=== PATIENT | male | born 1945 | race Caucasian/White ===

== ENCOUNTER → 2024-02-14 06:15 | Day surgery (SDC) | payer OTHER, SELFPAY | LOC: GI 06:15 | PROVIDERS: ATTENDING PHYSICIAN Specialist | DX: Z12.11 Encounter for screening for malignant neoplasm of colon (principal); K57.30 Diverticulosis of large intestine without perforation or abscess without bleeding; K56.2 Volvulus; Z83.719 Family history of colon polyps, unspecified | CPT/HCPCS: G0105 ==

== ENCOUNTER → 2024-06-01 10:28 | Outpatient (REF) | payer OTHER, SELFPAY | LOC: PAVMRI 10:28 | PROVIDERS: ATTENDING PHYSICIAN Orthopaedic Surgery; FAMILY PHYSICIAN Family Medicine | DX: M25.512 Pain in left shoulder (principal) | CPT/HCPCS: 73221 ==

== ENCOUNTER 2024-06-09 06:58 | Emergency (ER) | payer OTHER, SELFPAY ==
[2024-06-09 07:01] VITALS: BP 173/106
[2024-06-09 07:35] VITALS: BMI 36.1
--- NOTE | 2024-06-09 07:38 | ED.GENMED ---
History of Present Illness
<Wolf Casarez MD, Resident - Last Filed: 06/09/24 09:16>
General
Chief Complaint: Nose Bleed
Source: patient, spouse and family
Time Seen by Provider: 06/09/24 07:38
Nursing documentation reviewed up to this point in time: agreed with
Travel History
Have you traveled to any high risk areas for coronavirus over the past 14 days?: No
Have you had any contact with someone who has COVID-19?: No
Do you have any symptoms of coronavirus? Fever > 100 degrees, chills, cough, shortness of breath, sore throat, loss of taste or smell, muscle aches, or headache?: No
History of Present Illness
History of Present Illness:
79-year-old male with PMH of CAD, hypothyroidism, hypertension, hyperlipidemia who presented to the emergency department today with left nosebleed. Patient woke up this morning around 4 AM and he blew his nose and started having severe bleeding for
the 2 hours. Patient states that he has taken aspirin for 20 years, however, does not take any blood thinners. Patient denies trauma, sleeping in very hot room, and has humidifier at home. He does not have any history of hemorrhage, blood clots,
blood dyscrasias. He denies easy bruising, no speaking, bloody urine, black stool, and bloody stools.
Past History
<Wolf Casarez MD, Resident - Last Filed: 06/09/24 09:16>
Past History
ED Past Medical History: CAD, HTN, Hypercholesterolemia, [place] and Hypothyroidism
ED Past Surgical History: Cardiac and Other (Umbilical hernia repair)
Social History
Tobacco: Former smoker
Alcohol: Daily
Drug: None
Personal:
Living: with family
Employment: Retired
Family History
Family History: Other (His father had [place] and prostate cancer)
Review of Systems
<Wolf Casarez MD, Resident - Last Filed: 06/09/24 09:16>
Review of Systems
Allergies reviewed?: Yes
Other source history: family
All Other Systems: ROS reviewed and negative except as documented in HPI and ROS
Phy Exam
<Wolf Casarez MD, Resident - Last Filed: 06/09/24 09:16>
General Physical Exam
General Presentation: well appearing and no apparent distress
General age: appears stated age
General Skin: warm and dry
General Habitus: obese
General Mental: alert
General Hydration: appears well hydrated
ENT Exam
ENT Exam: EOMI, neck supple, normocephalic, swallowing well and other (Left nare epistaxis)
Skin Exam
Skin Exam: normal color, warm/dry, no rash and no petechia
Course
<Wolf Casarez MD, Resident - Last Filed: 06/09/24 09:16>
Vital Signs
Initial and Last Documented VS:
Initial Vital Signs
Temp Pulse Resp BP Pulse Ox
98.4 F 94 18 173/106 96
06/09/24 07:01 06/09/24 07:01 06/09/24 07:01 06/09/24 07:01 06/09/24 07:01
Last Documented Vital Signs
Temp Pulse Resp BP Pulse Ox
98.4 F 78 15 107/71 97
06/09/24 07:01 06/09/24 08:50 06/09/24 08:50 06/09/24 08:50 06/09/24 08:00
<Grady Pruitt, DO - Last Filed: 06/09/24 08:25>
Vital Signs
Initial and Last Documented VS:
Initial Vital Signs
Temp Pulse Resp BP Pulse Ox
98.4 F 94 18 173/106 96
06/09/24 07:01 06/09/24 07:01 06/09/24 07:01 06/09/24 07:01 06/09/24 07:01
Last Documented Vital Signs
Temp Pulse Resp BP Pulse Ox
98.4 F 78 15 107/71 97
06/09/24 07:01 06/09/24 08:50 06/09/24 08:50 06/09/24 08:50 06/09/24 08:00
Procedures
<Wolf Casarez MD, Resident - Last Filed: 06/09/24 09:16>
Nosebleed
Drug treatment: Lidocaine and Epinephrine
Treatment: local pressure applied
Post treatment bleeding: none- good control
<Wolf Casarez MD, Resident - Last Filed: 06/09/24 09:16>
MDM/Problems Addressed
Differential Diagnosis Includes:
Anterior nasal epistaxis due to dry nostrils, poor hemostasis.
MDM/Problems Addressed:
79-year-old male who presented to the ED with left nasal epistaxis that started at 4 AM this morning. Pressure has been held on his nose for close to 3 hours without much improvement in bleeding. Apart from aspirin, patient does not take any blood
thinners and did not have any trauma to the nose including nose picking.
Patient has been treated with local application of epinephrine on cottonball inserted to the affected nostril.
<Wolf Casarez MD, Resident - Last Filed: 06/09/24 09:16>
*Critical Care Note
Total Time (30-74mins, 75-104mins- exclusive of procedures): Not Applicable
Data Reviewed
Review of Other/Old Records Reveals: Records (PT 13.4)
<Wolf Casarez MD, Resident - Last Filed: 06/09/24 09:16>
Update Note
Update Note:
After 10 minutes of cauterization with lidocaine cottonball, epistaxis resolved. Patient was given samples of Polysporin bacitracin zinc polymyxin B sulfate antibiotic ointment, and nasal clip and was instructed to moisturize ministries with the
antibiotic and to use a nose clip in case of repeated bleed. Patient knows to come back to the ED if bleeding for more than 20 minutes.
ED Attending Note
<Wolf Casarez MD, Resident - Last Filed: 06/09/24 09:16>
-
Portions of this chart may have been created with voice recognition software.� Occasional wrong word or��sound alike� substitutions may have occurred due to the inherent limitations of voice recognition software.
<Grady Pruitt DO - Last Filed: 06/09/24 08:25>
ED Attending Note
Patient seen and examined by attending physician: Yes
I performed a history and physical exam of patient and discussed management with resident, I reviewed resident's note and agree with documented findings and plan of care.: Yes
ED Attending Note:
Seen with resident examined independently 80-year-old male spontaneous left-sided nosebleed aspirin no other blood thinners looks fairly well-controlled with pressure and epinephrine pledgets
Discharge Plan
Departure
Patient Disposition: Home (Routine Discharge)
Date of Disposition: 06/09/24
Time of Disposition: 08:33
Patient with high blood pressure during this ER visit?: Yes
Condition: Good
Covid-19: Not Applicable
Discharge Problem:
Left-sided nosebleed, Acute anterior epistaxis, Hypertension
Instructions: Nosebleeds (DC), BLOOD PRESSURE
Prescriptions:
No Action
osgdr-7c-kxy-epa-fish oil 1 EACH capsule
2,800 cap PO DAILY
atorvastatin 20 MG tablet
20 mg PO HS
aspirin 81 MG tablet,delayed release (DR/EC)
81 mg PO HS
levothyroxine 125 MCG tablet
125 mcg PO DAILY
losartan 25 MG tablet
25 mg PO HS
nitroglycerin 0.4 MG tablet, sublingual
0.4 mg sublingual [id number] PRN (Reason: CHEST PAIN)
allopurinol 300 MG tablet
300 mg PO DAILY
cholecalciferol (vitamin D3) 1,000 UNITS tablet
1,000 units PO DAILY
clopidogrel 75 MG tablet
75 mg PO DAILY
metoprolol succinate 12.5 MG tablet extended release 24 hr
12.5 mg PO HS
acetaminophen 325 MG tablet
650 mg PO Q4HPRN PRN (Reason: temp > 101 F) 0RF
isosorbide mononitrate 30 MG tablet extended release 24 hr
30 mg PO DAILY Qty: 30 2RF
Referrals:
Cherry Hogan DO [Family Provider] -
Interventions
Interventions:
*Risk Screen - Suicide Last Done: 06/09/24 07:01
*General Assessment Last Done: 06/09/24 07:01
*Neglect/Abuse Screening Last Done: 06/09/24 07:01
*ED COVID-19 Vaccine History Last Done: 06/09/24 07:43
*Nursing Disposition Last Done: 06/09/24 08:50
ED-EENT Assessment Last Done: 06/09/24 07:43
Discharge Date and Time
Discharge Date/Time: 06/09/24 08:58
Print Language: ECUADOREAN
[2024-06-09 07:40] VITALS: BP 101/65
[2024-06-09 08:00] VITALS: BP 116/74
[2024-06-09 08:50] VITALS: BP 107/71
== END 2024-06-09 08:58 | disposition home or self-care (01) ==
LOC: EMR 06:58
PROVIDERS: EMERGENCY PHYSICIAN Emergency Medicine; FAMILY PHYSICIAN Family Medicine
DX: R04.0 Epistaxis (principal); R42 Dizziness and giddiness; I10 Essential (primary) hypertension; E78.00 Pure hypercholesterolemia, unspecified; I25.10 Atherosclerotic heart disease of native coronary artery without angina pectoris; E03.9 Hypothyroidism, unspecified; I25.2 Old myocardial infarction; Z79.82 Long term (current) use of aspirin; Z87.891 Personal history of nicotine dependence
CPT/HCPCS: 99283; 30901

== ENCOUNTER 2024-06-12 10:39 | Day surgery (SDC) | payer OTHER, SELFPAY ==
[2024-06-12] VITALS (26 sets, daily range): BP systolic 127–195; BP diastolic 71–98; BMI 37.3
--- NOTE | 2024-06-12 06:50 | ED.GENMED ---
History of Present Illness
General
Chief Complaint: Chest Pain
Source: patient
Exam Limitations: none
Time Seen by Provider: 06/12/24 06:40
History of Present Illness
History of Present Illness:
See MDM
Past History
Past History
ED Past Medical History: CAD, HTN, Hypercholesterolemia, [place] and Hypothyroidism
ED Past Surgical History: Cardiac and Other (Umbilical hernia repair)
Social History
Tobacco: Former smoker
Alcohol: Daily
Drug: None
Personal:
Living: with family
Employment: Retired
Family History
Family History: Other (His father had [place] and prostate cancer)
Phy Exam
Physical Exam
Physical Exam:
See MDM
Scores
Heart Score for Chest Pain Patients
STEMI patient?: No
History: Moderately Suspicious
ECG: Nonspecific Repolarization
Age: >/= 65 years
Risk Factors: >/= 3 Risk Factors or History of CAD
Troponin: >/= 3 x Normal Limit
Heart Score for Chest Pain Patients: 8
Heart Score Risk: 72.7 % MACE over next 6 weeks
Course
Orders/Labs/Results
Orders:
Orders
06/12/24 06:42
Electrocardiogram (*1) Urgent
Reason for Study: Chest Pain
06/12/24 06:43
EKG- Treatment ONCE
06/12/24 06:44
Complete Blood Count/With Diff Urgent
Comprehensive Metabolic Panel Urgent
Troponin I Urgent
06/12/24 07:31
Nitroglycerin Ointment [Nitro-Bid] 1 inch TOPICAL NOW STA
06/12/24 07:46
PTT Urgent
Comment: Obtain baseline before beginning heparin infusion if not already collected
Heparin 4,000 units IV NOW STA
Pharmacy Request to Place See Dose Instructions PO NOW STA
Discontinue all Active Warfarin orders?: Yes
Nursing to Place Non Medication Order As Directed
Physician Order: PTT 6 hours after initial start of Heparin infusion
06/12/24 07:47
Electrocardiogram (*1) Urgent
Reason for Study: Chest Pain
EKG- Treatment ONCE
Nitroglycerin INFUSION NOW X 1 BOTTLE Nitroglycerin 100 mg/250 ml [Nitroglycerin Premix] 100 mg in 250 ml IV NOW
Initial dose in mcg/min, then titrate:: 5
Titrate to keep:: SBP < 160 mmHg
Titrate by mcg/min:: 5 mcg/min, may increase by 10 mcg/min if dose > 20 mcg/min
Frequency of titrations (minutes):: every 3-5 minutes
Maximum dose in mcg/min:: 200
Begin to taper infusion when:: Remained at goal for 2hrs
Taper by mcg/min:: 5 mcg/min
Frequency of taper (minutes) if patient maintains goal:: 30
Taper to off?: Yes
If infusion off & no longer maintaining goal:: Contact Provider
06/12/24 08:00
Heparin 70520 Units/250 ml 25,000 units in 250 ml IV PER PROTOCOL
Weight to be used for heparin protocol in kilograms (kg):: 108
Protocol:: Cardiac Tx/Acute Coronary
PTT Goal Range to be used:: PTT 73 to 111 seconds
Order type:: Initial
INITIAL Infusion Dose (UNITS/KG/hr) & then follow protocol:: 12 units/kg/hr
Infusion Dose in UNITS/hr & then follow protocol (UNITS/hr):: 1,000
INFUSION RATE in mL/hr & then follow protocol (mL/hr):: 10
PTT less than or equal to 64 seconds:: Increase rate by 200 units/hr (+ 2 mL/hr)
PTT 64.1 to 72.9 seconds:: Increase rate by 100 units/hr (+ 1 mL/hr)
PTT 73 to 111 seconds:: Target Range. No change in rate.
PTT 111.1 to 130.9 seconds:: Decrease rate by 100 units/hr (- 1 mL/hr)
PTT 131 to 199.9 seconds:: HOLD for 1 hr. Then decrease rate by 200 units/hr (- 2 mL/hr)
PTT greater than or equal to 200 seconds:: HOLD for 2 hrs & Notify Provider. Then decrease by 200 units/hr (-
2 mL/hr)
Lab follow-up:: Each change, PTT q6h until 2 consecutive are therapeutic. Then PTT
daily.
Pharmacy Request to Place See Dose Instructions IV DIRECTED
06/12/24 09:30
Troponin I Urgent
Abnormal Lab Results
06/12/24
06:44
RBC 4.28 L 10^6/uL
(4.70-6.10)
Hct 38.5 L %
(39.0-52.0)
Abs Immat Gran (auto) 0.2 H 10^3/uL
(0-0.05)
Absolute Neuts (auto) 6.7 H 10^3/uL
(1.4-6.5)
Absolute Monos (auto) 0.8 H 10^3/uL
(0.1-0.6)
Immature Gran % 1.6 H %
(0-0.5)
BUN 27 H mg/dl
(9-20)
Glucose 111 H mg/dl
(70-99)
Troponin I 0.113 H* ng/ml
06/12/24 06:44
06/12/24 06:44
Vital Signs
Initial and Last Documented VS:
Initial Vital Signs
BP
169/83
06/12/24 06:39
Last Documented Vital Signs
Temp Pulse Resp BP Pulse Ox
97.9 F 66 17 157/87 98
06/12/24 06:41 06/12/24 07:35 06/12/24 07:00 06/12/24 07:35 06/12/24 06:45
MDM/Problems Addressed
Differential Diagnosis Includes:
HPI and MDM Narrative:
79-year-old male presenting for evaluation of chest pain. Patient took a full aspirin and a nitroglycerin which helped alleviate some symptoms. He woke up due to the pain. EMS provided 2 more nitroglycerin on arrival, patient states he is feeling
much better. He does have a history of coronary artery disease with multiple stents. Patient denies any active chest pain but states 'I am aware of it'. Given his history, will obtain 2 troponin rule out. Will ultimately discuss case with
cardiology given his comorbidities and current symptoms
Physical exam
General: Well appearing and non-toxic
HEENT: protecting airway
Neck: appears supple
CV: No evidence of cyanosis. Regular rate and rhythm
Resp: No accessory muscle use
Abd: Non-distended
Extremities: No deformities. No leg edema
Neuro: alert
Psych: Normal affect
Skin: Intact
Problems Addressed including Acute and Chronic Conditions affecting care:
1. Chest pain
Acuity: acute
Prognosis: stable
Details: Patient currently chest pain-free. Nitroglycerin did alleviate symptoms. Will continue to monitor. Given his past medical history, will obtain 2 troponins
Updates
7:30 AM troponin found to be elevated. On reassessment, patient states the pain has returned. Because of the concern for unstable angina and ACS, will place Nitropaste. Cardiology made aware
7:40 AM Case discussed with cardiology. Will transition Nitropaste to IV nitroglycerin. Patient started on IV heparin
Differential Diagnosis (but not limited to): Unstable angina, acute coronary syndrome, noncardiac chest pain
Testing considered: Chest x-ray but he denies any active chest pain or shortness of breath
Drug therapy (if applicable): OTC meds, please see d/c instruction regarding Rx drugs
Amount and/or Complexity of Data Reviewed
Clinical info obtained from: Patient
External data reviewed: Prior history of coronary disease with multiple stents
Labs I independently reviewed (but not limited to): Elevated troponin
Radiology: N/A
Pulse Ox: not hypoxic
EKG independently reviewed: Sinus rhythm, normal axis, no STEMI, PVCs noted
Human Services Professional: Sinus rhythm
Critical Care: The high probability of a clinically significant, sudden or life threatening deterioration of the cardiovascular system(s) required my full and direct attention, intervention and personal management. The aggregate critical care time
was 33 minutes. This time is in addition to time spent performing reported procedures but includes the following:
[x] Data Review and interpretation
[x] Patient assessment and monitoring of vital signs
[x] Documentation
[x] Medication orders and management
Risk of Complication:
Social Determinants of health: Good social support
Discussed with other providers: Hospitalist, trading floor operator
Escalation of Care includes Admit/Obs: Given the concern for unstable angina, will admit
Occasional wrong word or 'sound a like' substitutions may have occurred due to the inherent limitations of voice recognition software. Read the chart carefully and recognize, using context, where substitutions have occurred.
*Critical Care Note
Total Time (30-74mins, 75-104mins- exclusive of procedures): 33 min
ED Attending Note
-
Portions of this chart may have been created with voice recognition software.� Occasional wrong word or��sound alike� substitutions may have occurred due to the inherent limitations of voice recognition software.
Discharge Plan
Departure
Patient Disposition: Admit
Date of Disposition: 06/12/24
Time of Disposition: 07:35
Admit to: Telemetry
Presentation/result/management discussed w/ accepting MD/DO: Hospitalist
Discharge Problem:
Unstable angina
Prescriptions:
No Action
zdylp-0x-ekd-epa-fish oil 1 EACH capsule
2,800 cap PO DAILY
atorvastatin 20 MG tablet
20 mg PO HS
aspirin 81 MG tablet,delayed release (DR/EC)
81 mg PO HS
levothyroxine 125 MCG tablet
125 mcg PO DAILY
losartan 25 MG tablet
25 mg PO HS
nitroglycerin 0.4 MG tablet, sublingual
0.4 mg sublingual [id number] PRN (Reason: CHEST PAIN)
allopurinol 300 MG tablet
300 mg PO DAILY
cholecalciferol (vitamin D3) 1,000 UNITS tablet
1,000 units PO DAILY
clopidogrel 75 MG tablet
75 mg PO DAILY
metoprolol succinate 12.5 MG tablet extended release 24 hr
12.5 mg PO HS
acetaminophen 325 MG tablet
650 mg PO Q4HPRN PRN (Reason: temp > 101 F) 0RF
isosorbide mononitrate 30 MG tablet extended release 24 hr
30 mg PO DAILY Qty: 30 2RF
Referrals:
Cherry Hogan DO [Family Provider] -
Interventions
Interventions:
*Risk Screen - Suicide Last Done: 06/12/24 06:41
*General Assessment Last Done: 06/12/24 06:41
*Neglect/Abuse Screening Last Done: 06/12/24 06:41
ED- Fall Risk Assessment Last Done: 06/12/24 06:55
*ED COVID-19 Vaccine History Last Done: 06/12/24 07:14
ED- Cardiac Assessment Last Done: 06/12/24 07:10
Discharge Date and Time
Print Language: IRISH
[2024-06-12 06:51] LABS: % Basophils 0.5 % (0-2); % Eosinophils 0.5 % (0-6); % Immature Granulocytes 1.6 % (0-0.5); % Lymphocytes 21.4 % (20.5-51.1); % Monocytes 8.1 % (1.7-9.3); % Neutrophils 67.9 % (42.2-75.2); Absolute Basophils 0.1 10^3/uL (0-0.2); Absolute Eosinophils 0.1 10^3/uL (0-0.7); Absolute Immature Granulocytes 0.2 10^3/uL (0-0.05); Absolute Lymphocytes 2.1 10^3/uL (1.2-3.4); Absolute Monocytes 0.8 10^3/uL (0.1-0.6); Absolute Neutrophils 6.7 10^3/uL (1.4-6.5); Hematocrit 38.5 % (39.0-52.0); Mean Corp Hgb Conc. 33.8 g/dL (33.0-37.0); Mean Corpuscular Hgb 30.4 pg (27.0-31.0); Mean Platelet Volume 9.6 fL (7.4-10.4); Nucleated Red Blood Cells % 0 % (-); Platelet Count 183 10^3/uL (130-400); Red Blood Cell Count 4.28 10^6/uL (4.70-6.10); Red Cell Dist. Width 13.4 % (11.5-14.5); White Blood Cell Count 9.9 10^3/uL (4.8-10.8)
[2024-06-12 07:07] LABS: ALT (SGPT) 40 U/L (0-50); AST (SGOT) 38 U/L (17-59); Albumin 4.3 g/dl (3.5-5.0); Alkaline Phosphatase 59 U/L (38-126); Blood Urea Nitrogen 27 mg/dl (9-20); Calcium 9.2 mg/dl (8.4-10.2); Carbon Dioxide 27 mmol/L (22-30); Chloride 107 mmol/L (98-107); Estimated Creatinine Clearance 102 ml/min; Glucose 111 mg/dl (70-99); Sodium 144 mmol/L (135-145); Total Bilirubin 0.4 mg/dl (0.2-1.3); Total Protein 6.4 g/dl (6.3-8.2); eGFR > 60.00
[2024-06-12 07:12] LABS: Potassium 3.9 mmol/L (3.5-5.1)
[2024-06-12 07:22] LABS: Troponin I 0.113 ng/ml
[2024-06-12] MEDS: NITRO-BID 1 INCH TOPICAL (07:35)
[2024-06-12] MEDS: NITROGLYCERIN PREMIX 250 IV (08:05)
[2024-06-12] MEDS: HEPARIN 4000 UNITS IV (08:05)
[2024-06-12] MEDS: HEPARIN 25000 UNITS/250 ML IV (08:11)
[2024-06-12 08:17] LABS: APTT 29.3 Sec (23.4-35.0)
--- NOTE | 2024-06-12 08:26 | HPS.HSE ---
Addendum entered and electronically signed by Buddy Allan MD 06/12/24 11:45:
I saw and examined the patient.
The ACCOUNTANT SYSTEMS's note was reviewed and I agree with the note.
Primary pan helper Dr. Cruz
.
79-year-old male with known coronary artery disease, previous history of coronary stenting, chronically occluded LAD with collaterals with last catheterization 2020, hypertension and hypercholesterolemia who developed chest discomfort at 5 AM
initially resolved en route after nitroglycerin given by EMS patient's had recurrent chest discomfort in the ER which was back to 5 out of 10 in intensity but then has been slowly improving. Patient with mild residual discomfort. First troponin
0.1. Patient's been compliant with medical therapy including aspirin. Presentation consistent with ACS/NSTEMI.
-Aspirin
-IV heparin
-IV nitro
-Continue beta-queenie which she is also on as an outpatient
-Statin
-Plan for cardiac catheterization
Original Note:
Family Physician
-
Family Physician: Cherry Hogan
Chief Complaint
-
chest pain
History of Present Illness
Mr. Quesada is a 79 yo male with CAD (LAD PCI 1995 then again JOHN proximal LAD in 2010, now proximal LAD occluded with collaterals), HTN, HLD and gout, who presents to the ER with c/o midsternal 5 out of 10 chest pain that woke him from sleeping at
5:30a this am. No associated symptoms or radiation of pain. He called EMS and took 1 SL NTG and 4 ASA 81mg. Upon EMS arrival they gave him 2 more SL NTG and his pain resolved. In the ER his pain recurred and is now a 4 out of 10. Initial troponin
0.113, he was started on IV Heparin and IV Nitroglycerin. His BP is also elevated in the ER now, but he states its well controlled at home, 135/80 on average. He will be admitted for cardiac cath today.
Medical History
Past Medical History
Past Medical History: Reports Other (as above)
Past Surgical History: Reports Tonsilectomy and Other (hernia surgery)
Social History
Tobacco: Former Smoker (quit 28 years ago)
Personal:
Living: With Family
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
Family History
Family History: CAD (father )
Allergies / Home Medications
Allergies reflects when Allergies were last updated in [facility].
Home Medications with original date entered in [facility]
Allergy/Medication List:
NKDA
meds as listed in [facility]
Review of Systems
-
History Source: Patient
A 12 point ROS was completed and negative except as noted: Yes
Physical Exam
Vital Signs
Vital Signs
Temp Pulse Resp BP Pulse Ox
97.9 F 66 17 157/87 98
06/12/24 06:41 06/12/24 07:35 06/12/24 07:00 06/12/24 07:35 06/12/24 06:45
Physical Exam
General: Well Developed, Well Nourished and No Apparent Distress
HEENT: NormoCephalic, Anicteric and Moist mucous membranes
Respiratory: Clear and Non Labored Respirations
Cardiac: S1/S2, Regular Rhythm and Peripheral Edema (mild b/l LE)
Breast: Deferred by me
GI: Soft, Non Tender and Normal Bowel Sounds
Rectal: Deferred by Provider
Genito-urinary: Deferred by me
Musculoskeletal: No Clubbing and No Cyanosis
Skin: Warm and Dry
Neuro: AO x 3 and No Motor Deficits
Hematologic/Lymphatic: No Lymphadenopathy
Psych: Calm
Laboratory Results
-
06/12/24 06:44
06/12/24 06:44
Laboratory Results
APTT 29.3 Sec (23.4-35.0) 06/12/24 07:54
Total Bilirubin 0.4 mg/dl (0.2-1.3) 06/12/24 06:44
AST 38 U/L (17-59) 06/12/24 06:44
ALT 40 U/L (0-50) 06/12/24 06:44
Alkaline Phosphatase 59 U/L (38-126) 06/12/24 06:44
Troponin I 0.113 ng/ml H* 06/12/24 06:44
Data Reviewed
-
Diagnostic Radiology: Image Personally Visualized and interpreted (SR with PVCs, LVH with QRS widening and repolarization abn, 65 bpm)
Medical Tests (Nuc Med, Echo, EKG etc): Report Reviewed by me (echo and cath reports as below)
Lab Data: Labs Reviewed by me
Old Records: Reviewed (as below)
Impression/Plan
-
IMPRESSION/PLAN:
NSTEMI - chest pain and initial troponin 0.113.
- IV Heparin, IV Nitroglycerin now in ER, continue.
- received 324mg ASA already.
- chest pain is now mild -07/06.
- admit and plan for [facility] today.
HTN - elevated in the ER.
- continue IV Nitroglycerin.
- continue outpatient meds and monitor.
HLD - on Lipitor and Zetia added 05/11/24 at [facility].
- goal LDL is < 55.
- LDL 76 in 01/2024.
CAD - complex.
- proximal LAD PCI 1995, then 99% proximal LAD PCI with JOHN 08/2010 (at proximal margin of the old stent).
- ACS Mar 2021 with proximal LAD occlusion at distal margin of LAD stent placed in 1995, with collaterals. Dominant circumflex had 40% OM2 and 50% proximal LPDA stenoses. No clear culprit lesion explaining ACS.
- 04/07/21 nuclear stress test, exercised 9min 30sec Alfred to 94% MPHR, no ischemic EKG changes and no symptoms. Nuclear scans showed large fixed anterior defect with toshia-infarct ischemia. LVEF was 46%.
- Imdur was added and no further anginal symptoms.
- Echo 03/2021 showed EF 55-60% with no wall motion abnormality, mild MR, mild to moderate AR, no pulmonary HTN.
- cath today for NSTEMI, as above.
[2024-06-12 10:11] LABS: Troponin I 0.122 ng/ml
[2024-06-12 10:44] LABS: ACT-LR - POC 348 Seconds (116-155)
--- NOTE | 2024-06-12 11:25 | PTCARENOTE ---
Addendum entered by Sirena Gonzalez RN 06/12/24 13:08:
Nitro gtt running at 15mcg/min
Original Note:
Received the patient from the clinical laboratory service teacher in his bed. The patient is aaox3, vss, 98% on RA. His right R-band is intact. A right radial pulse is noted. NSR is noted on the monitor. Instructed the patient on activity restrictions and expected oob time.
His call combs is within reach.
--- NOTE | 2024-06-12 11:30 | ITS.CL.PN ---
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
Procedure
Procedure Note:
CARDIAC CATHETERIZATION REPORT
Date of Procedure: 06/12/2024
Referring: Dr. Buddy Allan MD
Indication: Acute coronary syndrome, NSTEMI
PROCEDURE(S)
1. left heart catheterization
2. coronary angiography
3. iFR OM1
4. iFR OM2
5. iFR LPL2
ACCESS: 6F right radial artery (closure: radial band)
CATHETERS
1. 6F JR4
2. 6F JL3.5
MODERATE SEDATION: 44 minutes of moderate sedation was utilized. An independent medical underwriter was present to assist with and help manage the patient's level of consciousness and physiologic status.
ULTRASOUND GUIDED VASCULAR ACCESS (right radial artery): Ultrasound was utilized for vascular access. The vessel was visualized under ultrasound and noted to be patent. An image of the vessel was stored permanently in the patient's medical record.
Under direct ultrasound guidance, vascular access was obtained using a modified Seldinger technique and a 6 Brazilian sheath was placed.
HEMODYNAMIC DATA
LV 149/8 (EDP 20) mmHg
AO 149/76 (mean 105) mmHg
CORONARY ANGIOGRAPHY
Dominance: left
LM: mild eccentric proximal vessel narrowing best seen in cranial projections
LAD: large vessel giving rise to a moderate caliber D1 and moderate caliber D2. There are stents in the mid-LAD just after D1 that are chronically totally occluded with L-L collaterals filling the D2 and LAD retrograde and R-L collaterals filling
the LAD retrograde. The vessel and collateral supply is unchanged in appearance from prior angiography in 2020.
LCx: very large vessel giving rise to a large OM1, large OM2, large LPL1, and large LPDA. The small continuation of the distal LCx beyond the LPDA has TIMI2 flow. There is moderate disease in the proximal aspect of the OM1, OM2, and LPDA. These
vessels were assessed further by iFR. The vessel is unchanged in appearance from prior angiography in 2020.
RCA: moderate caliber, non-dominant vessel giving rise to several marginal branches and supplying R-L collaterals to the LAD. Vessel and collateral supply is unchanged from prior angiography in 2020.
iFR of OM1
An Omni wire was flushed and zeroed outside the body and then advanced to the left main. The wire introducer was removed and the catheter flushed with saline, after which pressure of the wire and guide were normalized. The wire was advanced to the
OM1 and iFR recorded at 0.97 (negative).
iFR of OM2
The Omni wire was redirected to the OM2 branch and iFR recorded at 0.99 (negative).
iFR of LPDA
The Omni wire was redirected to the LPDA branch and iFR recorded at 0.99 (negative). iFR pullback was performed. On return to the left main, iFR appropriately normalized to 1.0, confirming lack of wire drift.
RADIATION: dose 682 mGy; DAP 41.4 Gy*cm2; fluoroscopy time 6.5 min
CONCLUSIONS
1. obstructive coronary artery disease in a left dominant system as described. Angiography is largely unchanged from cath in 2020 without a clear culprit lesion to explain the patient's presentation. There is new RANCHO II flow in the very distal
left circumflex that is new, but this is a small branch. Most likely this is a type II NSTEMI in the setting of hypertension with underlying ischemia due to LAD CHEMIST [employer]OLOGICAL.
2. mildly elevated LV filling pressure and no aortic stenosis.
RECOMMENDATIONS
1. expectant management after cardiac catheterization via right radial approach
2. aggressive secondary prevention of coronary artery disease
3. medical management of likely type II NSTEMI. If patient develops worsening stable ischemic heart disease in the future or has recurrent ACS events, we will consider revascularization of the LAD. This could be attempted with PCI given that there
appears to be a reasonable antegrade microchannel.
Copy to: Dr. Cherry Hogan DO (PCP)
Signed: Ronan Jackson MD, PhD
[2024-06-12] MEDS: NSS 1000 IV (12:03)
--- NOTE | 2024-06-12 15:37 | CM ---
CM following for DC planning needs.
Met w/ patient at bedside to complete initial assessment.
Pt. informs that he resides in a private, 2 story home w/ spouse. He is functionally indep. w/ ADLs, mobility without use of any assisted device.
Pt. has RX plan and uses [facility] in [place] on [address]
Anticipated DC plan is for home without needs.
Will cont. to follow.
--- NOTE | 2024-06-12 16:04 | PTCARENOTE ---
Nitro gtt weaned off
[2024-06-12] MEDS: TOPROL XL 50 MG PO (17:29)
[2024-06-12 19:17] LABS: Troponin I 0.118 ng/ml
[2024-06-12] MEDS: COZAAR 50 MG PO (22:11)
[2024-06-13 03:01] VITALS: BP 159/84
[2024-06-13 03:13] VITALS: BMI 36.8
--- NOTE | 2024-06-13 03:47 | PTCARENOTE ---
Pt rec'd at beginning of shift in recliner chair. Right radial site with DDI. No hematoma noted-good radial pulse.
Sinus on telemetry with rare pvc noted. Pt awoken for VS at 0300. radial site remains intact. Pt with no complaints. Wt and am labs obtained
[2024-06-13 03:48] LABS: Hematocrit 35.8 % (39.0-52.0); Hemoglobin 12.9 g/dL (13.0-18.0); Mean Corpuscular Hgb 31.2 pg (27.0-31.0); Mean Corpuscular Volume 86.7 fL (80.0-94.0); Mean Platelet Volume 9.8 fL (7.4-10.4); Platelet Count 155 10^3/uL (130-400); Red Blood Cell Count 4.13 10^6/uL (4.70-6.10); Red Cell Dist. Width 13.3 % (11.5-14.5); White Blood Cell Count 8.8 10^3/uL (4.8-10.8)
[2024-06-13 04:10] LABS: Blood Urea Nitrogen 22 mg/dl (9-20); Calcium 8.7 mg/dl (8.4-10.2); Carbon Dioxide 24 mmol/L (22-30); Chloride 103 mmol/L (98-107); Estimated Creatinine Clearance 101 ml/min; Glucose 95 mg/dl (70-99); HDL Cholesterol 74 mg/dl; LDL Cholesterol, Calculated 33 mg/dl; Sodium 137 mmol/L (135-145); Total Cholesterol 122 mg/dl (50-199); Triglyceride 75 mg/dl (10-149); Very Low Density Lipoprotein 15 mg/dl (0-30); eGFR > 60.00
[2024-06-13 04:16] LABS: Potassium 3.9 mmol/L (3.5-5.1)
[2024-06-13 05:16] LABS: Troponin I 0.098 ng/ml
[2024-06-13] MEDS: SYNTHROID 150 MCG PO (06:19)
[2024-06-13 07:10] VITALS: BP 165/78
[2024-06-13] MEDS: ZYLOPRIM 300 MG PO (07:42)
[2024-06-13] MEDS: LIPITOR 40 MG PO (07:42)
[2024-06-13] MEDS: ZETIA 10 MG PO (07:42)
[2024-06-13] MEDS: ASPIR LOW (ENTERIC COATED) 81 MG PO (07:42)
[2024-06-13] MEDS: IMDUR (EXTENDED RELEASE) 30 MG PO (07:42)
--- NOTE | 2024-06-13 08:10 | PTCARENOTE ---
Received the patient at change of shift. The patient is aaox3, vss, 97% on RA. His right wrist dressing is c/d/i. NSR noted on the monitor. He has no complaints.
--- NOTE | 2024-06-13 08:50 | W.PN.UPDATE ---
Addendum entered and electronically signed by Buddy Allan MD 06/13/24 10:11:
I saw and examined the patient.
The TELEX OPERATOR's note was reviewed and I agree with the note.
Seen and examined. Cath site fine. Exam otherwise unchanged from yesterday Catheterization without new obstructive coronary artery disease. Plan for continued medical therapy for coronary artery disease adjustments in medical therapy made by
Anthony. Will continue to have patient monitor home blood pressures. If patient requires additional blood pressure control then can also consider further increases in losartan.
Plan for discharge today with follow-up in our office as scheduled
Original Note:
Update Note
Progress Note Update
Mr. Quesada is a 79 yo male with CAD, HTN, and HLD, presents with chest pain and NSTEMI. He is s/p cath 06/12/24 that is largely unchanged from cath in 2020 without a clear culprit lesion to explain the patient's presentation. There is new RANCHO II
flow in the very distal left circumflex that is new, but this is a small branch. 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 Continue medical management of likely type II NSTEMI and
aggressive secondary prevention of coronary artery disease. Per Dr. Jackson, if he develops worsening stable ischemic heart disease in the future or has recurrent ACS events, we will consider revascularization of the LAD. This could be attempted
with PCI given that there appears to be a reasonable antegrade microchannel. His right radial cath site is healed, no hematoma or bruit. Toprol increased to BID and he will continue to monitor BP at home. Reviewed echo results with patient, no
changes from 2020 (normal EF, mild MR, AR, TR). All questions answered, stable for discharge home today with follow up as arranged.
--- NOTE | 2024-06-13 09:06 | W.DS.TRANS ---
DC Summary - Systems Requirements Planner
-
Discharge Instructions:
Discharge Diagnosis/Procedures Cardiac catheterization
Diet Low Cholesterol
Activity As tolerated
Driving Restrictions No driving for 24 hours
Instructions:
Stand-Alone Forms: DC Instructions- Cath/EP Lab
Changes to Home Medications: Yes
Discharge Medications:
DC Medications w/original date entered in [employer]
allopurinol 300 mg tablet 300 mg PO DAILY Gout 04/06/21
aspirin 81 mg tablet,delayed release 81 mg PO HS Blood clot prevention/tx 04/06/21
cholecalciferol (vitamin D3) 25 mcg (1,000 unit) tablet 2,000 units PO QPM Supplement 04/06/21
losartan 25 mg tablet 50 mg PO HS Blood pressure 04/06/21
nitroglycerin 0.4 mg sublingual tablet 0.4 mg sublingual [id number] PRN CHEST PAIN 04/06/21
ascorbic acid (vitamin C) 500 mg tablet (Vitamin C) 500 mg PO DAILY Supplement 06/12/24
atorvastatin 40 mg tablet (Lipitor) 40 mg PO DAILY High Cholesterol 06/12/24
cranberry fruit 450 mg tablet (cranberry) 450 mg PO DAILY Supplement 06/12/24
ezetimibe 10 mg tablet (Zetia) 10 mg PO DAILY High Cholesterol 06/12/24
isosorbide mononitrate 30 mg tablet,extended release 24 hr 30 mg PO DAILY Heart Disease/Condition 06/12/24
levothyroxine 150 mcg tablet (Synthroid) 150 mcg PO DAILY Thyroid 06/12/24
metoprolol succinate 50 mg tablet,extended release 24 hr 50 mg PO QPM #90 tabs 06/12/24
omega 2-lxw-enk-fish oil 1,200 mg (144 mg-216 mg) capsule (Fish Oil) 2 cap PO QPM Supplement 06/12/24
Home Medication Changes
Toprol increased.
Pending Results: No
[2024-06-13 11:12] VITALS: BP 138/77
--- NOTE | 2024-06-13 11:34 | PTCARENOTE ---
Patient discharged home.
== END 2024-06-13 11:45 | disposition home or self-care (01) ==
LOC: CATH 10:39
PROVIDERS: Nurse Practitioner Adult Health; ATTENDING PHYSICIAN Internal Medicine Cardiovascular Disease; EMERGENCY PHYSICIAN Student in an Organized Health Care Education/Training Program; FAMILY PHYSICIAN Family Medicine
DX: I21.4 Non-ST elevation (NSTEMI) myocardial infarction (principal); I25.10 Atherosclerotic heart disease of native coronary artery without angina pectoris; I10 Essential (primary) hypertension; Z87.891 Personal history of nicotine dependence; E78.00 Pure hypercholesterolemia, unspecified; M10.9 Gout, unspecified; E03.9 Hypothyroidism, unspecified; I25.2 Old myocardial infarction; I25.82 Chronic total occlusion of coronary artery
CPT/HCPCS: 99152; 99153; 93799; 76937; 80048; 80053; 80061; 84484; 85025; 85027; 85730; 93005; 93306; 93458; 96365; 96366; 96367; 99291; C1769; C1887; C1894

== ENCOUNTER 2024-07-10 07:57 | Emergency (ER) | payer OTHER, SELFPAY ==
[2024-07-10] VITALS (11 sets, daily range): BP systolic 150–192; BP diastolic 69–97; BMI 36.5
--- NOTE | 2024-07-10 08:15 | ED.GENMED ---
History of Present Illness
<Elvira Sapp PA-C - Last Filed: 07/10/24 14:44>
General
Chief Complaint: Dizziness
Source: patient and ambulance crew
Exam Limitations: none
Time Seen by Provider: 07/10/24 08:03
History of Present Illness
History of Present Illness:
79yoM with a history of coronary artery disease, hypertension, hyperlipidemia, and hypothyroidism presenting via EMS for evaluation of dizziness. Patient woke up this morning and checked his blood pressure which was elevated at 205/108. His
systolic blood pressure is typically in the 130s. He started to feel a little dizzy around 6:45am this morning. He describes his dizziness as feeling like his eyes are shaking if he focuses on specific point. He denies any blurred vision, double
vision, vertiginous symptoms, weakness, paresthesias. Due to his symptoms, EMS was called. Patient is currently feeling better. He was able to ambulate into the ambulance without any balance issues. He has a headache although he attributes this
to his left nasal packing that was placed by ENT yesterday for recurrent epistaxis. He denies any chest pain or shortness of breath. He had a cardiac catheterization last month. Per catheterization report: 'Angiography is largely unchanged from
cath in 2020 without a clear culprit lesion to explain the patient's presentation. There is new RANCHO II flow in the very distal left circumflex that is new, but this is a small branch. Most likely this is a type II NSTEMI in the setting of
hypertension with underlying ischemia due to LAD LMSW.'
Past History
<Elvira Sapp PA-C - Last Filed: 07/10/24 14:44>
Past History
ED Past Medical History: CAD, HTN, Hypercholesterolemia, MS and Hypothyroidism
ED Past Surgical History: Cardiac and Other (Umbilical hernia repair)
Social History
Tobacco: Former smoker
Alcohol: Daily
Drug: None
Personal:
Living: with family
Employment: Retired
Family History
Family History: Other (His father had MS and prostate cancer)
Phy Exam
<Elvira Sapp PA-C - Last Filed: 07/10/24 14:44>
General Physical Exam
General Presentation: well appearing and no apparent distress
General age: appears stated age
General Skin: warm and dry
General Habitus: normal
General Mental: alert
ENT Exam
ENT Exam: normocephalic
Additional ENT: L nasal packing in place
Eye Exam
Eye Exam: PERRL, EOMI and visual bradley normal
Cardiovascular Exam
Cardiovascular Exam: regular rate/rhythm, no murmur and normal peripheral pulses (2+ radial pulses bilaterally)
Pulmonary Exam
Pulmonary Exam: lungs clear, no respiratory distress, no rales, no crackles, no rhonchi and no wheezing
Neurological Exam
Neurological Exam: alert, no motor deficits and other (CN 2-12 grossly intact. PERRL. EOMs intact without visualized nystagmus. Visual bradley normal. Negative drift x4. Normal finger to nose and heel to lopez bilaterally. )
[place] Coma Scale
Eye Opening: Spontaneous
Verbal Response: Oriented
Motor Response: Obeys Commands
GCS Total Score: 15
Skin Exam
Skin Exam: normal color and warm/dry
Psychiatric Exam
Psychiatric Exam: normal mood/affect
<Grady Pruitt DO - Last Filed: 07/10/24 09:21>
[place] Coma Scale
GCS Total Score: 15
Course
<Elvira Sapp PA-C - Last Filed: 07/10/24 14:44>
Orders/Labs/Results
Orders:
Orders
07/10/24 08:13
Electrocardiogram (*1) Urgent
Reason for Study: Vertigo / Dizzy
Cardiac Monitoring- Treatment ONCE
EKG- Treatment ONCE
07/10/24 08:14
CT Head W/o Iv Contrast Urgent
Comment:
Reason For Exam: dizziness, HTN
07/10/24 08:19
Complete Blood Count/With Diff Urgent
Comprehensive Metabolic Panel Urgent
Troponin I Urgent
07/10/24 09:08
Oxycodone/Acetaminophen [Percocet 5/325] 1 tablet PO NOW STA
07/10/24 09:10
EKG- Treatment ONCE
07/10/24 09:11
HydrALAZINE [Apresoline] 10 mg IV NOW STA
07/10/24 10:44
CR Chest - 2 Views Urgent
Comment:
Reason For Exam: SOB
07/10/24 11:12
Troponin I Urgent
07/10/24 11:15
Electrocardiogram (*1) Urgent
Reason for Study: Vertigo / Dizzy
Abnormal Lab Results
07/10/24 07/10/24
08:19 11:12
Abs Immat Gran (auto) 0.1 H 10^3/uL
(0-0.05)
Absolute Neuts (auto) 8.1 H 10^3/uL
(1.4-6.5)
Absolute Lymphs (auto) 1.1 L 10^3/uL
(1.2-3.4)
Absolute Monos (auto) 0.8 H 10^3/uL
(0.1-0.6)
Neutrophils % 79.5 H %
(42.2-75.2)
Lymphocytes % 10.8 L %
(20.5-51.1)
Glucose 147 H mg/dl
(70-99)
Troponin I 0.043 H* ng/ml 0.044 H* ng/ml
07/10/24 08:19
07/10/24 08:19
Vital Signs
Initial and Last Documented VS:
Initial Vital Signs
Temp Pulse Resp Pulse Ox
98.6 F 82 21 97
07/10/24 07:59 07/10/24 07:59 07/10/24 07:59 07/10/24 07:59
Last Documented Vital Signs
Temp Pulse Resp BP Pulse Ox
98.1 F 63 12 166/92 98
07/10/24 08:11 07/10/24 12:15 07/10/24 12:15 07/10/24 12:00 07/10/24 11:00
<Grady Pruitt, DO - Last Filed: 07/10/24 09:21>
Orders/Labs/Results
Orders:
Orders
07/10/24 08:13
Electrocardiogram (*1) Urgent
Reason for Study: Vertigo / Dizzy
Cardiac Monitoring- Treatment ONCE
EKG- Treatment ONCE
07/10/24 08:14
CT Head W/o Iv Contrast Urgent
Comment:
Reason For Exam: dizziness, HTN
07/10/24 08:19
Complete Blood Count/With Diff Urgent
Comprehensive Metabolic Panel Urgent
Troponin I Urgent
07/10/24 09:08
Oxycodone/Acetaminophen [Percocet 5/325] 1 tablet PO NOW STA
07/10/24 09:10
EKG- Treatment ONCE
07/10/24 09:11
HydrALAZINE [Apresoline] 10 mg IV NOW STA
07/10/24 10:44
CR Chest - 2 Views Urgent
Comment:
Reason For Exam: SOB
07/10/24 11:12
Troponin I Urgent
07/10/24 11:15
Electrocardiogram (*1) Urgent
Reason for Study: Vertigo / Dizzy
Abnormal Lab Results
07/10/24 07/10/24
08:19 11:12
Abs Immat Gran (auto) 0.1 H 10^3/uL
(0-0.05)
Absolute Neuts (auto) 8.1 H 10^3/uL
(1.4-6.5)
Absolute Lymphs (auto) 1.1 L 10^3/uL
(1.2-3.4)
Absolute Monos (auto) 0.8 H 10^3/uL
(0.1-0.6)
Neutrophils % 79.5 H %
(42.2-75.2)
Lymphocytes % 10.8 L %
(20.5-51.1)
Glucose 147 H mg/dl
(70-99)
Troponin I 0.043 H* ng/ml 0.044 H* ng/ml
07/10/24 08:19
07/10/24 08:19
Vital Signs
Initial and Last Documented VS:
Initial Vital Signs
Temp Pulse Resp Pulse Ox
98.6 F 82 21 97
07/10/24 07:59 07/10/24 07:59 07/10/24 07:59 07/10/24 07:59
Last Documented Vital Signs
Temp Pulse Resp BP Pulse Ox
98.1 F 63 12 166/92 98
07/10/24 08:11 07/10/24 12:15 07/10/24 12:15 07/10/24 12:00 07/10/24 11:00
Sujathalt;Elvira Sapp PA-C - Last Filed: 07/10/24 14:44>
MDM/Problems Addressed
Differential Diagnosis Includes:
79yoM here with elevated blood pressure this morning. BP 205/108 at home. Started with dizziness at 6:45 which he describes as feeling like his eyes are moving if focusing on a specific point. Dizziness currently improving. Denies vertiginous
symptoms. No CP/SOB. BP 188/97 on arrival. He is well appearing in no distress. No nystagmus or ataxia appreciated on exam. Differential diagnosis includes but is not limited to: hypertension, hypertensive urgency, hypertensive emergency, doubt CVA,
no symptoms to suggest ACS
Initial ED plan: Check cardiac labs, EKG, and CT head.
<Elvira Sapp PA-C - Last Filed: 07/10/24 14:44>
*EKG
Interpreted by ED Provider?: Yes
EKG Intrepretation Date: 07/10/24
Heart Rate: 60
Rate: normal
Rhythm: sinus
[place]: left axis deviation
Interval: normal interval
QRS Pattern: left vent hypertrophy
Ischemia: no ischemia (Appears unchanged from last EKG from 06/12/24)
*Critical Care Note
Total Time (30-74mins, 75-104mins- exclusive of procedures): Not Applicable
<Elvira Sapp PA-C - Last Filed: 07/10/24 14:44>
Update Note
Update Note:
EKG shows NSR without ischemic changes, EKG appears unchanged from prior. Troponin is 0.044 which is downtrending from last month. He did have a cardiac cath last month which did not show any new changes and medical management was recommended.
Remainder of labs unremarkable including normal renal function. CT head negative for acute findings. Patient had a transient episode of shortness of breath lasting only a few minutes which resolved on reassessment. CXR added which is normal. Repeat
troponin/EKG unchanged.
Patient given 10mg IV hydralazine as well as a dose of Percocet for his pain 2/2 nasal packing. Blood pressure improved to 166/92. Dizziness has resolved and he is asymptomatic on reassessment. No indication for hospitalization at this time. Suspect
his acute pain related to his nasal packing may be contributing to his elevated blood pressure readings. Advised f/u with PCP and patent prosecution attorney. ED return precautions discussed. Patient in agreement with plan and was discharged in stable condition.
ED Attending Note
<Elvira Sapp PA-C - Last Filed: 07/10/24 14:44>
-
Portions of this chart may have been created with voice recognition software.� Occasional wrong word or��sound alike� substitutions may have occurred due to the inherent limitations of voice recognition software.
<Grady Pruitt, DO - Last Filed: 07/10/24 09:21>
ED Attending Note
Patient seen and examined by attending physician: Yes
I performed the substantive portion of visit, reviewed & personally made and approve the management plan that is documented in note by myself or ANATOLY.: Yes
ED Attending Note:
Seen with PA examined independently patient with some headache and dizziness status post nasal packing blood pressure is up a bit although he is in pain
Discharge Plan
Departure
Patient Disposition: Home (Routine Discharge)
Date of Disposition: 07/10/24
Time of Disposition: 12:23
Patient with high blood pressure during this ER visit?: Yes
Discharge Problem:
Hypertension
Instructions: High Blood Pressure (DC)
Prescriptions:
No Action
aspirin 81 MG tablet,delayed release (DR/EC)
81 mg PO HS
losartan 25 MG tablet
50 mg PO HS
nitroglycerin 0.4 MG tablet, sublingual
0.4 mg sublingual [id number] PRN (Reason: CHEST PAIN)
allopurinol 300 MG tablet
300 mg PO DAILY
cholecalciferol (vitamin D3) 1,000 UNITS tablet
2,000 units PO QPM
atorvastatin [Lipitor] 40 mg Tablet
40 mg PO DAILY
ascorbic acid (vitamin C) [Vitamin C] 500 mg Tablet
500 mg PO DAILY
levothyroxine [Synthroid] 150 mcg Tablet
150 mcg PO DAILY
ezetimibe [Zetia] 10 mg Tablet
10 mg PO DAILY
omega 6-amt-qvv-fish oil [Fish Oil] 1,200 (144-216) mg Capsule
1 cap PO QPM
cranberry 450 mg Tablet
650 mg PO DAILY
isosorbide mononitrate 30 MG tablet extended release 24 hr
30 mg PO DAILY
metoprolol succinate 50 mg Tablet Extended Release 24 Hr
50 mg PO QPM Qty: 90 5RF
oxycodone-acetaminophen 5-325 mg Tablet
1 tab PO Q6HPRN PRN (Reason: SEVERE PAINS)
Referrals:
Cherry Hogan, DO [Family Provider] -
Activity Restrictions/Additional Instructions:
Please follow-up with your family doctor and patent prosecution attorney. Return to the ER with any new or worsening symptoms.
Interventions
Interventions:
*Risk Screen - Suicide Last Done: 07/10/24 10:54
*Neglect/Abuse Screening Last Done: 07/10/24 10:54
ED- Fall Risk Assessment Last Done: 07/10/24 08:14
*ED COVID-19 Vaccine History Last Done: 07/10/24 08:14
*Nursing Disposition Last Done: 07/10/24 12:39
ED- Pulmonary Assessment Last Done: 07/10/24 09:00
ED- Neurological Assessment Last Done: 07/10/24 09:00
ED- Cardiac Assessment Last Done: 07/10/24 09:00
Discharge Date and Time
Discharge Date/Time: 07/10/24 13:03
Print Language: [id number]
[2024-07-10 08:32] LABS: % Basophils 0.4 % (0-2); % Eosinophils 0.9 % (0-6); % Immature Granulocytes 0.5 % (0-0.5); % Lymphocytes 10.8 % (20.5-51.1); % Monocytes 7.9 % (1.7-9.3); % Neutrophils 79.5 % (42.2-75.2); Absolute Eosinophils 0.1 10^3/uL (0-0.7); Absolute Immature Granulocytes 0.1 10^3/uL (0-0.05); Absolute Lymphocytes 1.1 10^3/uL (1.2-3.4); Absolute Monocytes 0.8 10^3/uL (0.1-0.6); Absolute Neutrophils 8.1 10^3/uL (1.4-6.5); Hematocrit 41.6 % (39.0-52.0); Hemoglobin 14.1 g/dL (13.0-18.0); Mean Corp Hgb Conc. 33.9 g/dL (33.0-37.0); Mean Corpuscular Hgb 29.6 pg (27.0-31.0); Mean Corpuscular Volume 87.4 fL (80.0-94.0); Mean Platelet Volume 9.4 fL (7.4-10.4); Nucleated Red Blood Cells % 0 % (-); Platelet Count 172 10^3/uL (130-400); Red Blood Cell Count 4.76 10^6/uL (4.70-6.10); Red Cell Dist. Width 13.2 % (11.5-14.5); White Blood Cell Count 10.2 10^3/uL (4.8-10.8)
[2024-07-10 08:40] LABS: ALT (SGPT) 41 U/L (0-50); AST (SGOT) 34 U/L (17-59); Albumin 4.3 g/dl (3.5-5.0); Alkaline Phosphatase 76 U/L (38-126); Blood Urea Nitrogen 20 mg/dl (9-20); Calcium 9.2 mg/dl (8.4-10.2); Carbon Dioxide 29 mmol/L (22-30); Chloride 99 mmol/L (98-107); Estimated Creatinine Clearance 101 ml/min; Glucose 147 mg/dl (70-99); Potassium 3.7 mmol/L (3.5-5.1); Sodium 136 mmol/L (135-145); Total Bilirubin 1.2 mg/dl (0.2-1.3); Total Protein 6.6 g/dl (6.3-8.2); eGFR > 60.00
[2024-07-10 08:55] LABS: Troponin I 0.043 ng/ml
[2024-07-10] MEDS: PERCOCET 5/325 1 TABLET PO (09:48)
[2024-07-10] MEDS: APRESOLINE 10 MG IV (10:10)
[2024-07-10 11:56] LABS: Troponin I 0.044 ng/ml
== END 2024-07-10 13:03 | disposition home or self-care (01) ==
LOC: EMR 07:57
PROVIDERS: Physician Assistant; EMERGENCY PHYSICIAN Emergency Medicine; FAMILY PHYSICIAN Family Medicine
DX: I10 Essential (primary) hypertension (principal); I25.10 Atherosclerotic heart disease of native coronary artery without angina pectoris; E78.00 Pure hypercholesterolemia, unspecified; E03.9 Hypothyroidism, unspecified; I25.2 Old myocardial infarction; Z87.891 Personal history of nicotine dependence; R51.9 Headache, unspecified
CPT/HCPCS: 96374; 99285; 70450; 71046; 80053; 84484; 85025; 93005

== ENCOUNTER → 2025-05-11 13:49 | Outpatient (REF) | payer OTHER, SELFPAY | LOC: HWRCS 13:49 | PROVIDERS: ATTENDING PHYSICIAN Student in an Organized Health Care Education/Training Program; FAMILY PHYSICIAN Family Medicine | DX: I25.10 Atherosclerotic heart disease of native coronary artery without angina pectoris (principal) | CPT/HCPCS: 93306 ==